=== PATIENT | male | born 1960 | race Caucasian/White ===

== ENCOUNTER → 2017-08-18 | Outpatient (CLI) | payer OTHER | END | disposition home or self-care (01) | LOC: C.RDSM 11:00 | PROVIDERS: ATTEND Physical Medicine & Rehabilitation Sports Medicine | DX: M25.561 Pain in right knee (principal); M17.31 Unilateral post-traumatic osteoarthritis, right knee ==

== ENCOUNTER 2017-12-03 06:29 | Inpatient (IN) | payer OTHER ==
[2017-10-06 13:37] VITALS: Ht 188 cm; Wt 140.3 kg
--- NOTE | 2017-10-06 14:19 | PAT Medication Instructions ---
Service Date Oct 06, 2017. Current Home Medication List Omeprazole (Prilosec), 40 MG PO PRN [Tylenol #3], 2 TAB PO PRN Medication Instructions For Your Scheduled Surgery - Take the following medications the morning of surgery with a sip of water: Omeprazole (Prilosec), 40 MG PO PRN (IF NEEDED) [Tylenol #3], 2 TAB PO PRN (OKAY TO TAKE UP TO 4 HOURS PRIOR TO SURGERY IF NEEDED) - Take the following medications as scheduled the night before surgery: Omeprazole (Prilosec), 40 MG PO PRN (IF NEEDED) [Tylenol #3], 2 TAB PO PRN (IF NEEDED) If you have any questions please call us at [phone] or [phone] or [phone]
[2017-10-06 15:06] LABS: BASO % 0.2 %; BASO ABS # 0.02 K/uL (0-0.2); EOS % 0.5 %; EOS ABS # 0.05 K/uL (0-0.5); HEMATOCRIT 43.4 % (42-52); HEMOGLOBIN 15.3 g/dL (14.0-18.0); IG# 0.04 K/uL (0.00-0.02); LYMPH % 18.6 %; LYMPH ABS # 1.78 K/uL (1.2-3.4); MEAN CELL VOLUME 88.4 fL (80-100); MEAN CORPUSCULAR HEMOGLOBIN 31.2 pg (25-34); MEAN CORPUSCULAR HGB CONC 35.3 g/dl (32-36); MEAN PLATELET VOLUME 12.1 fL (7.4-10.4); MONO % 4.6 %; MONO ABS # 0.44 K/uL (0.11-0.59); NEUT % 75.7 %; NEUT ABS # 7.25 K/uL (1.4-6.5); PLATELET COUNT 200 K/uL (130-400); RED CELL DISTRIBUTION WIDTH SD 41.4 fL (36.4-46.3); WHITE BLOOD COUNT 9.58 K/uL (4.8-10.8)
[2017-10-06 15:16] LABS: PTT PATIENT 30.1 SECONDS (21.0-31.0)
--- NOTE | 2017-10-06 15:17 | DIAGNOSTIC IMAGING REPORT ---
CHEST 2 VIEWS ROUTINE HISTORY: 57 years-old Male pat preoperative exam. No acute chest complaints COMPARISON: None available TECHNIQUE: PA and lateral views of the chest FINDINGS: Cardiac mediastinal and hilar silhouettes are within normal limits. No pneumothorax, pleural effusion, focal airspace consolidation or overt pulmonary edema. Degenerative changes noted within the shoulders and spine. Cholecystectomy clips noted. IMPRESSION: No acute process. The above report was generated using voice recognition software. It may contain grammatical, syntax or spelling errors. Electronically signed by: Sameer Ybarra M.D. 10/06/2017 3:16 PM Dictated Date/Time: 10/06/2017 3:15 PM
[2017-10-06 15:39] LABS: CALCIUM 9.7 mg/dl (8.5-10.1); CREATININE 1.65 mg/dl (0.60-1.40); POTASSIUM 4.4 mmol/L (3.5-5.1)
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
[2017-11-21 12:38] LABS: BASO % 0.4 %; BASO ABS # 0.03 K/uL (0-0.2); EOS ABS # 0.14 K/uL (0-0.5); HEMATOCRIT 43.6 % (42-52); HEMOGLOBIN 15.3 g/dL (14.0-18.0); IG# 0.02 K/uL (0.00-0.02); LYMPH % 29.5 %; LYMPH ABS # 2.03 K/uL (1.2-3.4); MEAN CELL VOLUME 89.7 fL (80-100); MEAN CORPUSCULAR HEMOGLOBIN 31.5 pg (25-34); MEAN CORPUSCULAR HGB CONC 35.1 g/dl (32-36); MEAN PLATELET VOLUME 11.8 fL (7.4-10.4); MONO % 9.3 %; MONO ABS # 0.64 K/uL (0.11-0.59); NEUT % 58.5 %; NEUT ABS # 4.02 K/uL (1.4-6.5); PLATELET COUNT 167 K/uL (130-400); RED CELL DISTRIBUTION WIDTH CV 13.4 % (11.5-14.5); RED CELL DISTRIBUTION WIDTH SD 43.8 fL (36.4-46.3); WHITE BLOOD COUNT 6.88 K/uL (4.8-10.8)
[2017-11-21 12:44] LABS: PTT PATIENT 29.1 SECONDS (21.0-31.0)
[2017-11-21 13:16] LABS: CALCIUM 9.2 mg/dl (8.5-10.1); CREATININE 1.69 mg/dl (0.60-1.40); POTASSIUM 4.1 mmol/L (3.5-5.1)
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
[~2017-12-03] VITALS: Ht 188 cm; Wt 140.3 kg
[2017-12-03] VITALS (8 sets, daily range): BP systolic 105–147; BP diastolic 68–88; PULSE 61–95; TEMP 36.4–36.9; O2SAT 92–98
[~2017-12-03 06:29] MED LIST: CEFAZOLIN 3000MG IV PUSH 22.5 ML IV SCH; LACTATED RINGER'S 1000ML 1,000 ML IV SCH; LACTATED RINGER'S 1000ML IV SCH; PRLSR20 PO; ROPIVACAINE 5MG/ML 30 ML 150 MG, BUPIVACAINE 0.5% MPF INJ 30 ML, EpINEphrine HCL INJ 0.... INFIL SCH; TRANEXAMIC ACID INJ 1,000 MG x 1 Bag Preop IV SCH; TRANEXAMIC ACID INJ 1,000 MG x 1 bag Topical TOP SCH; TYLENOL #3 PO
--- NOTE | 2017-12-03 06:31 | History & Physical Bridge Note ---
H&P Re-Evaluation Bridge Note: I have examined the patient, reviewed the History & Physical and in the interval since the performance of the History & Physical I have noted the following changes of clinical significance:consent obtained. No changes noted
[2017-12-03] MEDS ORDERED: MISC4CAP (07:13)
[2017-12-03] MEDS ORDERED: LIDOCAINE HCL 2% 2 ML VIAL (20MG/ML) ONE (07:27)
[2017-12-03] MEDS ORDERED: MIDAZOLAM HCL 1 MG/ML 2ML VIAL ONE (07:27)
[2017-12-03] MEDS ORDERED: PROPOFOL IV EMULSION 10 MG/ML 20 ML VIAL ONE ×3 (07:27→09:56)
[2017-12-03] MEDS ORDERED: FENTANYL CITRATE INJ 50 MCG/1 ML 2 ML VIAL ONE (07:28)
[2017-12-03] MEDS ORDERED: ROPIVACAINE 0.5% 5 MG/ML 30 ML VIAL ONE (07:58)
[2017-12-03] MEDS ORDERED: BUPIVACAINE 0.5 % 5 MG/1 ML PF 10ML VIAL ONE (07:58)
[2017-12-03] MEDS ORDERED: ORTHO JOINT ANESTHETIC ONE (08:20)
[2017-12-03] MEDS ORDERED: POVIDONE-IODINE OP SOLN 30 ML BTL ONE (08:20)
[2017-12-03] MEDS ORDERED: EpHEDrine SULFATE 50MG/5ML SYR ONE (09:12)
[2017-12-03] MEDS ORDERED: DEXAMETHASONE SOD INJ 4 MG/ML VIAL ONE (09:12)
[2017-12-03] MEDS ORDERED: ONDANSETRON INJ 2 MG/ML 2 ML VIAL ONE (09:12)
[2017-12-03] MEDS ORDERED: ATROPINE SULFATE 0.4 MG/ML 1 ML VIAL ONE (09:25)
[2017-12-03] MEDS ORDERED: PHENYLEPHRINE HCL INJ 10 MG/ML VIAL ONE (09:44)
--- NOTE | 2017-12-03 10:28 | [facility] Post Operative Brief Note ---
Immediate Operative Summary Operative Date December 03, 2017. Pre-Operative Diagnosis Right Knee End-Stage Degenerative Joint Disease, Posttraumatic Post-Operative Diagnosis Right Knee End-Stage Degenerative Joint Disease, Posttraumatic Procedure(s) Performed Right Total Knee Arthroplasty Surgeon Dr. Dasilva Candy Spreader Surgeon(s) CHARLIE Webber Estimated Blood Loss 75 ml Findings Consistent with Post-Op Diagnosis Fluids (cc crystalloids) 1600cc Specimens A. Right Knee Bone and Tissue Drains None Anesthesia Type MAC Spinal Regional Complication(s) none Disposition Accompanied Pt To Recover: no Overlapping Procedure I was immediately available: during the entire case
[2017-12-03] MEDS ORDERED: ALUMINUM/MAGNESIUM/SIMETH (MAALOX MAX) 30 ML UDC PO PRN (10:45)
[2017-12-03] MEDS ORDERED: METOCLOPRAMIDE HCL INJ 5 MG/ML 2 ML VIAL IV PRN (10:45)
[2017-12-03] MEDS ORDERED: ACETAMINOPHEN 1000 MG/100 ML IV IV ONE (10:45)
[2017-12-03] MEDS ORDERED: DiphenhydrAMINE HCL 50 MG/ML VIAL IV PRN (10:45)
[2017-12-03] MEDS ORDERED: TAMSULOSIN HCL 0.4 MG CAP PO PRN (10:45)
[2017-12-03] MEDS ORDERED: ONDANSETRON INJ 2 MG/ML 2 ML VIAL IV PRN ×2 (10:45→11:15)
[2017-12-03] MEDS ORDERED: BISACODYL 10 MG SUPP PR PRN (10:45)
[2017-12-03] MEDS ORDERED: ACETAMINOPHEN IV 100 ML IV PRN (10:45)
[2017-12-03] MEDS ORDERED: MAGNESIUM HYDROXIDE SUSP 30 ML UDC PO PRN (10:45)
[2017-12-03] MEDS ORDERED: ACETAMINOPHEN 325 MG TAB PO PRN (10:45)
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
--- NOTE | 2017-12-03 10:51 | OPERATIVE REPORT ---
DATE OF OPERATION: 12/03/2017 SURGEON: Florencio Dasilva MD SUPPLIER SPECIALIST: Jenaro Wilde PA-C. No resident or fellow available. PREOPERATIVE DIAGNOSIS: Posttraumatic osteoarthritis of right knee with femoral deformity. POSTOPERATIVE DIAGNOSIS: Posttraumatic osteoarthritis of right knee with femoral deformity. OPERATION PERFORMED: Cemented right total knee replacement. SUMMARY OF IMPLANTS: Size 4 posterior cruciate substituting femur, size 4 rotating tibial platform tray, oval domed 3 pegged patella size 41, tibial insert size 4, 15 mm thick posterior cruciate substituting. ESTIMATED BLOOD LOSS: 100 mL. CRYSTALLOID: 1600 mL. Two bags of Palacos G cement. PERIOPERATIVE SITUATION: This is a medically cleared male with intractable knee pain following post-fracture deformity years ago. His hardware has all been removed. He is now cleared for surgery. There was never any evidence of any infection. This was discussed in detail with him. At this point in time, he wants to proceed with surgical treatment. X-rays revealed end-stage disease with varus deformity, post-fracture deformity, end-stage osteoarthritis in all 3 compartments. Again operation is cemented right total knee replacement. PROCEDURE IN DETAIL: The patient was identified, site verified, consent verified, 3 g of Ancef confirmed as being given. The right lower extremity was prepped and draped in usual routine fashion. Tourniquet inflated to 300 mmHg after exsanguination of limb with a rubber Esmarch bandage for a total of approximately 55 minutes. Midline exposure was utilized. The old scarring was released and parapatellar arthrotomy performed. Extensor mechanism was quite scarred, needed to be tediously dissected. The patella was then eventually everted without doing any type of quadriceps adjustment proximally or distally. The patellar tendon was left intact. The retropatellar fat pad and synovium was then resected. There was marked deformity about the distal femur and marked osteophytes, these were all resected. The ACL and PCL were intact. The distal femur was entered and the cruciates resected. The tibia could then be subluxated once the menisci were resected. The distal femur was then resected 12 then adjusted to 14 mm, the proximal tibia resected 4 mm, the extension gap was good. Femur was sized between a 5 and a 4, was measured 5, cut 4, there was no notching. The flexion gap was excellent. A box cut was then made and the size 4 trial fit well. The tibia was then broached and reamed to a size 4 after all marginal osteophytes about the proximal tibia resected. Appropriate broaching and reaming carried out and then trial reduction with up to 15 revealed excellent stability. There was no maltracking of the extensor mechanism, there was no mid range instability. The trial implants were then removed once the patella was resected and fit with a 41, which tracked well. The trial implants were removed. TXA applied. After several minutes, TXA was irrigated. The Orthomix injected, after several minutes, the permanent implants were then cemented into position, after 12 minutes, the tourniquet deflated, after 14 minutes the knee flexed. There was no maltracking. There was no instability and the trial spacer removed. The wound irrigated. No cement needed to be removed. The permanent liner seated, knee reduced, and then closed with #2 Vicryl, 2-0 Vicryl, and stainless steel clips. Appropriate dressing applied. The patient transferred to recovery room in satisfactory condition having tolerated the procedure well. Again estimated blood loss was 100 mL. Crystalloid 1600 mL. DVT prophylaxis per protocol. Bone pathology pending on resections. SUMMARY OF IMPLANTS: Size 4 right posterior cruciate substituting femur, size 4 rotating tibial platform tray, oval domed 3 pegged patella size 41, tibial insert size 4 with a 15-mm thick posterior cruciate substituting, and 2 bags of Palacos G cement. I attest to the content of the Intraoperative Record and any orders documented therein. Any exception s are noted below.
--- NOTE | 2017-12-03 11:01 | Anesthesiology Progress Note ---
Anesthesia Post Op Note Date & Time December 03, 2017 at 11:01 Vital Signs Pain Intensity: 6 Vital Signs Past 12 Hours Date Time Temp Pulse Resp B/P (MAP) Pulse Ox O2 Delivery O2 Flow Rate FiO2 12/03/17 10:50 76 16 119/72 97 Nasal Cannula 2 12/03/17 10:40 77 15 121/77 98 Oxymask 10 12/03/17 10:34 36.7 72 13 109/74 98 Oxymask 10 12/03/17 07:33 36.7 63 20 147/88 98 Room Air Notes Mental Status: alert / awake / arousable, participated in evaluation Pt Amnestic to Procedure: Yes Nausea / Vomiting: adequately controlled Pain: adequately controlled Airway Patency, RR, SpO2: stable & adequate BP & HR: stable & adequate Hydration State: stable & adequate Anesthetic Complications: no major complications apparent
[2017-12-03] MEDS ORDERED: HYDROmorphone INJ 0.5 MG/0.5 ML SYR ONE (11:13)
[2017-12-03] MEDS ORDERED: HYDROmorphone INJ 2 MG/ML SYR/VIAL IV PRN ×2 (11:15→17:30)
[2017-12-03] MEDS ORDERED: ATROPINE SULFATE 0.1 MG/ML 5ML SYR IV PRN (11:15)
[2017-12-03] MEDS ORDERED: PHENYLEPHRINE 100MCG/ML 5ML SYR IV PRN (11:15)
[2017-12-03] MEDS ORDERED: EpHEDrine SULFATE INJ 50 MG/ML AMP IV PRN (11:15)
--- NOTE | 2017-12-03 11:23 | DIAGNOSTIC IMAGING REPORT ---
R KNEE 1 OR 2 VIEWS ROUTINE HISTORY: 57 years-old Male AP/LATERAL IN PACU RIGHT KNEE status post right knee total joint arthroplasty. Degenerative joint disease. COMPARISON: Right knee radiographs 08/18/2017 TECHNIQUE: 2 views of the right knee FINDINGS: Postoperative changes from right knee total joint arthroplasty with patellar resurfacing. Alignment is satisfactory. No periprosthetic fracture or retained foreign body. Anterior midline skin keith are noted along with expected postsurgical soft tissue swelling and deep tissue air. Cortical thickening about the distal femoral metaphysis appears unchanged suggesting sequela of healed fracture. IMPRESSION: Right knee arthroplasty and patellar resurfacing without complication identified. The above report was generated using voice recognition software. It may contain grammatical, syntax or spelling errors. Electronically signed by: Sameer Ybarra M.D. 12/03/2017 11:22 AM Dictated Date/Time: 12/03/2017 11:21 AM
[2017-12-03] MEDS ORDERED: MoRPHine SULFATE 4 MG/ML 1 ML CARP\\VIAL ONE (12:22)
[2017-12-03] MEDS ORDERED: D5W AND 1/2NSS + 20MEQ KCL 1,000 ML IV SCH (12:31)
[2017-12-03] MEDS ORDERED: NURSING VERBAL MED ORDER ONE (13:15)
[2017-12-03] MEDS: MoRPHine SULFATE 4 MG/ML 1 ML CARP\\VIAL IV PRN ×2 (13:27→17:18)
[2017-12-03] MEDS: HYDROCODONE/ACETAMIN 5/325MG TAB PO PRN ×2 (14:16→16:44)
--- NOTE | 2017-12-03 15:16 | ORTHOPEDICS PROGRESS NOTE ---
DATE: 12/03/2017 SUBJECTIVE: Postop check, status post right total knee replacement for right knee osteoarthritis and femoral deformity from the fracture. At this point in time, he ate lunch. He has no problems with nausea, vomiting, chest pain, shortness of breath, fever, or chills. OBJECTIVE: Vital signs are stable. He is afebrile. Neurovascular check femoral sciatic nerve is normal. Wound dressing clean, dry, and intact. X-RAYS: Postop x-rays look excellent. ASSESSMENT AND PLAN: Doing well. Continue with care pathway. Hep-Lock IV at 1600 hours.
[2017-12-03] MEDS: CEFAZOLIN IV 2,000 MG in SYRINGE 0 ML IV SCH (15:41)
[2017-12-03] MEDS ORDERED: WARFARIN SOD 5 MG TAB PO ONE (16:00)
[2017-12-03] MEDS ORDERED: ACET-1101 PO (16:24)
[2017-12-03] MEDS: FERROUS GLUCONATE 324 MG TAB PO SCH (17:53)
[2017-12-03] MEDS: DOCUSATE SODIUM 100 MG CAP PO SCH (20:54)
[2017-12-04] MEDS: HYDROmorphone HCL 2 MG TAB PO PRN ×2 (00:05→13:06)
[2017-12-04] MEDS: CEFAZOLIN IV 2,000 MG in SYRINGE 0 ML IV SCH (00:05)
[2017-12-04] MEDS: MoRPHine SULFATE 4 MG/ML 1 ML CARP\\VIAL IV PRN ×4 (01:16→10:34)
[2017-12-04 04:00] VITALS: BP 130/72; PULSE 65; TEMP 36.6; O2SAT 95
[2017-12-04] MEDS ORDERED: DEXAMETHASONE INJ 10 MG in SYRINGE 0 ML IV ONE (07:30)
--- NOTE | 2017-12-04 07:47 | PROGRESS NOTE ---
DATE: 12/04/2017 Postop day #1 status post right total knee replacement, history of previous femur fracture. The patient had some pain. He notes that at times feels like that he has pain above the knee. He states the knee does hurt. He felt something click last night, most likely just scar tissue and had some drainage. His extensor mechanism is intact. At this point in time, he has no chest pain, shortness of breath, fever, chills, nausea, vomiting or headache. A.m. labs are pending. Wound dressing had some minor drainage and was reinforced, on neurovascular check again is normal. ASSESSMENT: Overall, doing well. Will discharge today after PT, OT. Encouraged to use knee immobilizer based on his history of femur fracture in the past. Follow up in 2 weeks for staple removal.
--- NOTE | 2017-12-04 07:55 | DISCHARGE SUMMARY ---
CHIEF COMPLAINT: Right knee pain. HISTORY OF PRESENT ILLNESS: A 57-year-old male admitted for elective right total knee replacement for secondary traumatic degenerative arthritis in the distal femoral deformity. Hospital course has been uneventful. Some moderate thigh pain. Postop x-rays look excellent. PAST MEDICAL HISTORY: Remarkable for TIA, migraine headaches, GERD, obesity. PAST SURGICAL HISTORY: Previous surgeries include cholecystectomy, right distal femur ORIF and hardware removal. PREADMISSION MEDICATIONS: Include Tylenol #3 q. 6 hours p.r.n. ALLERGIES: PHENOBARBITAL. SOCIAL HISTORY: Reveals he is , employed. No tobacco or alcohol use. FAMILY HISTORY: Noncontributory. REVIEW OF SYSTEMS: Noncontributory. ASSESSMENT: Overall, doing well, status post right total knee replacement, complicated case based on deformity and previous injury. At this point, did well. X-rays look good. Will discharge today after PT, OT. Knee immobilizer for 1 week to help protect his extensor mechanism with all the trauma he had from previous injuries. He will follow up in 2 weeks for staple removal. Discharge on 4 mg of Coumadin if INR is 1.4 or less, 2 mg if INR is 1.5 or greater.
[2017-12-04 08:01] VITALS: BP 143/80; PULSE 69; TEMP 36.6; O2SAT 96
[2017-12-04 08:16] VITALS: O2SAT 96
[2017-12-04] MEDS: FERROUS GLUCONATE 324 MG TAB PO SCH ×2 (08:43→13:03)
[2017-12-04] MEDS: DOCUSATE SODIUM 100 MG CAP PO SCH (08:43)
[2017-12-04 08:57] LABS: HEMATOCRIT 37.8 % (42-52); MEAN CELL VOLUME 89.8 fL (80-100); MEAN CORPUSCULAR HEMOGLOBIN 30.9 pg (25-34); MEAN CORPUSCULAR HGB CONC 34.4 g/dl (32-36); MEAN PLATELET VOLUME 11.8 fL (7.4-10.4); PLATELET COUNT 185 K/uL (130-400); RED CELL DISTRIBUTION WIDTH CV 13.6 % (11.5-14.5); RED CELL DISTRIBUTION WIDTH SD 44.4 fL (36.4-46.3); WHITE BLOOD COUNT 9.35 K/uL (4.8-10.8)
[2017-12-04] MEDS ORDERED: MULTIVITAMIN TAB PO SCH (09:00)
[2017-12-04] MEDS ORDERED: PANTOprazole SOD 40 MG TAB PO SCH (09:00)
[2017-12-04 09:10] LABS: INR 1.1 (0.9-1.1)
[2017-12-04 09:35] LABS: CALCIUM 8.7 mg/dl (8.5-10.1); CREATININE 1.68 mg/dl (0.60-1.40); POTASSIUM 4.1 mmol/L (3.5-5.1)
[2017-12-04] MEDS ORDERED: HYDR-5688 PO (10:27)
[2017-12-04] MEDS ORDERED: WARF2TAB PO (10:27)
--- NOTE | 2017-12-04 10:29 | Discharge Instructions ---
Discharge Instructions Date of Service December 03, 2017. Admission Reason for Admission: Right Knee Degenerative Joint Disease Discharge Discharge Diagnosis / Problem: Right knee s/p total knee replacement Discharge Goals Goal(s): Decrease discomfort, Improve function, Increase independence Activity Recommendations Activity Limitations: as noted below Lifting Limitations: gradually increase as tolerated Exercise/Sports Limitations: until after follow-up appointment Shower/Bathe: keep incision dry Driving or Machine Use: No driving until cleared by Dr. Dasilva Weightbearing Status: Right weightbearing (as tolerated) . Instructions / Follow-Up Instructions / Follow-Up New Medicine: * You will likely be taking one or more of these medications: 1. [place] - Take, as directed, when you need it, every four to six hours to control your pain. 2. Coumadin - Thins your blood to lessen the chance of forming a blood clot. The dose of this is different for each person and is based on your blood tests that are done twice a week. * The most common side effects of pain medicine and iron are nausea and constipation. If nausea or constipation is too much of a problem or if you have any questions about your new medicines or doses, call [facility] at . We will try to help you manage these issues. VERY IMPORTANT TO READ AND REVIEW" Blood Clots and Blood Thinning Medicine: * You are given Coumadin during the immediate post-operative period to lessen the risk of blood clots forming in your legs and/or lungs. Coumadin is usually given for six weeks after surgery. * The prescription is for 2 mg tablets. At discharge, you should understand your dose and take it all at the same time every day, preferably after dinner. * You need to get your blood checked 1 - 2 times per week for six weeks or as directed. * If your dose needs to change, we will call you. Do not take your medication on the day of the blood test until we call you. Pain: * The immediate post-operative period after knee replacement surgery is often quite painful. * You are given a prescription for pain medicine. You should take it, as directed, when you need it, especially before physical therapy and before going to bed. Pain that interferes with sleep is very common and can last several months. * You will likely need pain medicine for the first four to six weeks. It will not stop all of the pain. The pain will lessen and as you feel better, you may change to milder pain medicine such as regular Tylenol. * The most common side effects of pain medicine are nausea and constipation, so don't take more than you need. Physical Therapy: * You will have physical therapy two or three times each week for four to six weeks after your surgery in order to regain your knee range of motion and to retrain your knee to work properly. * It is just as important to make sure you are getting your knee perfectly straight as it is to regain your knee bend. * Taking a pain pill an hour before therapy can help you have a more productive and comfortable therapy session if needed. Home Exercise: * You were shown a series of exercises (heel props, heel slides, etc.) in the hospital. Do these exercises three to four times each day including the exercises you were shown in physical therapy. Walking: * Get up and walk several times each day. For the first four weeks, try not to stand or walk for more than one hour at a time. If you do stand or walk for more than one hour, you will not hurt anything, but your knee and leg will likely swell. * As you feel comfortable, you may change from the walker or crutches to a cane and then to independent walking. SELF CARE INSTRUCTIONS AFTER TOTAL KNEE REPLACEMENT A. You may need to continue a physical therapy program after discharge from the hospital. There are several options available to you. Your doctor will assist you in selecting the best one for you. 1. An out-patient facility 2 to 3 times a week for therapy or home therapy. 2. Continue working on all exercises taught to you in the hospital. Your goals should be to increase bending of your knee to 90 degrees and beyond and to fully straighten your knee. B. You may progress at your own pace from walking with a walker or crutches to a cane; then to no assistive devices. C. Make walking a part of your daily routine. Be up as much as comfortable with rest periods throughout the day. Rest with leg elevation is very important. Use the ice wrap frequently for the first 3-4 weeks. D. There are no restrictions on activities. You may ride in a car, shop, participate in machine staker and all social activities. E. Wear the long elastic stockings (GARRY hose) 20 hours a day for six weeks after surgery. They can be removed several times a day for laundering and for a shower. F. Do not place a pillow behind your knee when resting. A pillow at your ankle is okay. VERY IMPORTANT TO READ AND REVIEW A. Take Coumadin, Aspirin or Lovenox (blood thinning medications) as directed by your doctor. If on Coumadin, have a pro-time (blood test) drawn according to your doctor's instructions. This will tell the doctor how well the Coumadin is thinning your blood. 1. YOU WILL BE GIVEN AN ORDER AT DISCHARGE FOR PT/INR (BLOOD WORK). PLEASE HAVE THIS DONE INSTRUCTED. PLEASE CALL OUR OFFICE AFTER YOUR BLOODWORK IS COMPLETE SO WE CAN TRACK YOUR RESULTS. IF YOU ARE GOING TO OUTPATIENT PHYSICAL THERAPY, YOU WILL NEED TO GO TO OUTPATIENT TESTING TO HAVE IT DRAWN. B. There are a few signs you need to watch for after you are home. Call [facility] if you notice any of the followin. Increased severe knee pain. Some pain is expected especially when you exercise. 2. Increased swelling in your leg or knee; pain or swelling of the calf muscle in either lower leg. 3. Any fluid drainage from the incision. 4. Shortness of breath or chest pain. C. Please call [facility] at if you have any concerns or questions about your operation or recovery. The doctor or his nurse will return your call promptly. D. You must take antibiotics before dental work, bladder, bowel or other surgery. Call the office to obtain a prescription at least 2 days prior to your appointment. * CALL IF INCREASED PAIN, REDNESS, DRAINAGE OR FEVER GREATER THAT 101. * Sutures should be removed 12-14 days after surgery unless you are on chronic steriods, then it will be 14-18 days after surgery. Call your doctor if: * Temperature above 101 degrees F. * Pain not relieved by pain medicine ordered. * Increased drainage or redness from incision. * Notify your doctor with any questions or concerns. Current Hospital Diet Patient's current hospital diet: Regular Diet Discharge Diet Recommended Diet: Regular Diet Procedures Procedures Performed: Right Total Knee Arthroplasty Pending Studies Studies pending at discharge: no Medical Emergencies . Who to Call and When: Medical Emergencies: If at any time you feel your situation is an emergency, please call 911 immediately. . Non-Emergent Contact Non-Emergency issues call your: Primary Care Provider, Surgeon Call Non-Emergent contact if: temperature is above 101, wound has increased drainage, wound has increased redness, wound has increased pain, you have any medication questions . "Provider Documentation" section prepared by Jenaro Wilde PA-C. . [place] Drug Monitoring Program Search Results: no issues identified
[2017-12-04 11:55] VITALS: BP 133/81; PULSE 68; TEMP 36.9; O2SAT 95
[2017-12-04] MEDS ORDERED: WARFARIN SOD 5 MG TAB PO SCH (16:00)
== END 2017-12-04 15:45 | disposition home or self-care (01) | DRG 470 ==
LOC: C.ACU 06:29 → C.MSW 10:40 → ENRESERV 11:26 → CANRESERV 11:26 → ENRESERV 11:47
PROVIDERS: ADMIT Physical Medicine & Rehabilitation Sports Medicine; ATTEND Physical Medicine & Rehabilitation Sports Medicine
PROC: 0SRC0J9 Replacement of Right Knee Joint with Synthetic Substitute, Cemented, Open Approach (ICD-10-PCS; principal; 2017-12-03 09:00)
DX: M17.31 Unilateral post-traumatic osteoarthritis, right knee (principal); K21.9 Gastro-esophageal reflux disease without esophagitis; E66.9 Obesity, unspecified; Z86.73 Personal history of transient ischemic attack (TIA), and cerebral infarction without residual deficits; Z68.39 Body mass index [BMI] 39.0-39.9, adult

== ENCOUNTER → 2017-12-11 | Outpatient (CLI) | payer OTHER ==
[~2017-12-11] MED LIST changes: -CEFAZOLIN 3000MG IV PUSH 22.5 ML IV SCH; +HYDR-5688 PO; -LACTATED RINGER'S 1000ML 1,000 ML IV SCH; -LACTATED RINGER'S 1000ML IV SCH; +MISC4CAP; -ROPIVACAINE 5MG/ML 30 ML 150 MG, BUPIVACAINE 0.5% MPF INJ 30 ML, EpINEphrine HCL INJ 0.... INFIL SCH; -TRANEXAMIC ACID INJ 1,000 MG x 1 Bag Preop IV SCH; -TRANEXAMIC ACID INJ 1,000 MG x 1 bag Topical TOP SCH; +WARF2TAB PO
--- NOTE | 2017-12-11 09:15 | DIAGNOSTIC IMAGING REPORT ---
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 There are postsurgical changes of a total right knee arthroplasty and patellar resurfacing. The femoral and tibial components appear well seated. Overlying skin keith are evident. There is a suspected joint effusion. IMPRESSION: Postsurgical changes of a total right knee arthroplasty. Electronically signed by: Chapo Delgado M.D. 12/11/2017 9:14 AM Dictated Date/Time: 12/11/2017 9:12 AM
== END | disposition home or self-care (01) ==
LOC: C.RDSM 08:44
PROVIDERS: ATTEND Physician Assistant
DX: Z96.651 Presence of right artificial knee joint (principal)